=== PATIENT | male | born 1965 | race Caucasian/White ===

== ENCOUNTER → 2025-03-29 | Day surgery (SDC) | payer BC ==
[~2025-03-29] MED LIST: BUPIVACAINE LIPOSOME/PF 266 MG/20 ML IJ ONE; CRESTOR40 MG PO; FENTANYL CITRATE/PF 100MCG/2 ML INJ ONE; LIDOCAINE HCL 2% LOCAL INJ 5 ML SDV VIAL INJ ONE; MIDAZOLAM HCL 2 MG/2 ML VIAL ONE; MULTI-VITAMIN1 EACH PO; ONDANSETRON HCL INJ 2MG/ML 2ML 2 MG/ML VIAL ONE; PROPOFOL IV EMULSION 10 MG/ML 20 ML VIAL ONE; SERTRALINE HCL100 MG PO; SEVOFLURANE INHAL SOLN 250 ML PEN BTL ONE
[2025-03-29] MEDS: CEFAZOLIN SODIUM 2 GM ONE (11:31)
[2025-03-29] MEDS: LACTATED RINGER'S 1,000 ML ONE (11:31)
[2025-03-29 13:44] VITALS: TEMP 98
[2025-03-29 14:45] VITALS: BP 149/86; PULSE 72; RESP 16; O2SAT 94
== END | disposition home or self-care (01) ==
LOC: OR 10:33
PROVIDERS: ATTEND Podiatrist Foot & Ankle Surgery
DX: M20.11 Hallux valgus (acquired), right foot (principal); M20.5X1 Other deformities of toe(s) (acquired), right foot; E78.5 Hyperlipidemia, unspecified; F17.290 Nicotine dependence, other tobacco product, uncomplicated; Z79.899 Other long term (current) drug therapy
CPT/HCPCS: 28296; C1713; J0666; J2003; J2250; J2405; J2704; J3010; J7121